=== PATIENT | female | born 1950 | race Caucasian/White ===

== ENCOUNTER → 2023-11-16 09:05 | Outpatient (REF) | payer MEDICARE, OTHER, SELFPAY ==
[2023-11-16 12:26] LABS: ALT (SGPT) 16 U/L (0-35); AST (SGOT) 28 U/L (14-36); Albumin 4.5 g/dl (3.5-5.0); Alkaline Phosphatase 79 U/L (38-126); Blood Urea Nitrogen 25 mg/dl (7-17); Calcium 9.6 mg/dl (8.4-10.2); Carbon Dioxide 24 mmol/L (22-30); Chloride 102 mmol/L (98-107); Glucose 94 mg/dl (70-99); HDL Cholesterol 60 mg/dl; LDL Cholesterol, Calculated 72 mg/dl; Potassium 4.9 mmol/L (3.5-5.1); Sodium 137 mmol/L (135-145); Total Bilirubin 0.5 mg/dl (0.2-1.3); Total Cholesterol 162 mg/dl (50-199); Total Protein 6.9 g/dl (6.3-8.2); Triglyceride 154 mg/dl (10-149); Very Low Density Lipoprotein 30 mg/dl (0-30); eGFR 53.06
== END ==
LOC: HWLAB 09:05
PROVIDERS: ATTENDING PHYSICIAN Nurse Practitioner Adult Health
DX: E78.5 Hyperlipidemia, unspecified (principal)
CPT/HCPCS: 36415; 80053; 80061

== ENCOUNTER 2024-11-21 11:56 | Emergency (ER) | payer MEDICARE, OTHER, SELFPAY ==
[2024-11-21 12:00] VITALS: BP 101/50
[2024-11-21 12:09] VITALS: BMI 27.1
[2024-11-21 12:10] VITALS: BP 106/56
[2024-11-21 12:11] VITALS: BP 106/56
[2024-11-21 12:57] LABS: Hematocrit 37.6 % (37.0-47.0); Hemoglobin 12.3 g/dL (12.0-16.0); Mean Corp Hgb Conc. 32.7 g/dL (33.0-37.0); Mean Corpuscular Volume 90.2 fL (81.0-99.0); Nucleated Red Blood Cells % 0 %; Platelet Count 197 10^3/uL (130-400); Red Cell Dist. Width 12.9 % (11.5-14.5)
[2024-11-21 13:00] VITALS: BP 126/79
[2024-11-21 13:17] LABS: ALT (SGPT) 13 U/L (0-35); AST (SGOT) 22 U/L (14-36); Albumin 4.4 g/dl (3.5-5.0); Alkaline Phosphatase 93 U/L (38-126); Blood Urea Nitrogen 21 mg/dl (7-17); Calcium 9.1 mg/dl (8.4-10.2); Carbon Dioxide 25 mmol/L (22-30); Chloride 105 mmol/L (98-107); Estimated Creatinine Clearance 39 ml/min; Glucose 121 mg/dl (70-99); Potassium 4.6 mmol/L (3.5-5.1); Sodium 136 mmol/L (135-145); Total Protein 6.7 g/dl (6.3-8.2); eGFR 47.50
[2024-11-21 13:18] LABS: Urine Character Clear (Clear)
[2024-11-21 13:28] LABS: Troponin I < 0.012 ng/ml; Urine Squamous Cell 26-30 /LPF (Few); Urine Urothelial Cell 0-2 /LPF (FEW)
[2024-11-21 13:30] LABS: Urine White Cell 16-20 /HPF (0-5)
--- NOTE | 2024-11-21 13:58 | ED.GENMED ---
History of Present Illness
General
Chief Complaint: Fainting Sensation
Time Seen by Provider: 11/21/24 12:25
History of Present Illness
History of Present Illness:
74-year-old female presents the emergency department for evaluation of a syncopal event. 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
States this happened to her 2 years ago there was exact same activity. She denies any associated chest pain or palpitations. Currently feels well with no complaints. She does have hypertension and took her lisinopril this morning.
Past History
Past History
ED Past Medical History: HTN
ED Past Surgical History: Negative Cardiac
Social History
Tobacco: Non-smoker
Alcohol: None
Drug: None
Living: with family
Employment: Retired
Family History
Family History: Other (Noncontributory)
Review of Systems
Review of Systems
Allergies reviewed?: Yes
All Other Systems: ROS reviewed and negative except as documented in HPI and ROS
Phy Exam
Physical Exam
Physical Exam:
GEN: Well appearing, NAD, WDWN
HEENT: Oral mucosa moist, no scleral icterus
Cardiac: Regular rate and rhythm, no murmurs
Lung: No respiratory distress, no tachypnea, lungs clear to auscultation bilaterally
MSK: No gross deformity or injuries
Skin: Good color, no pallor or jaundice, no rashes
Neuro: AO x3, moves all extremities freely
Psych: Calm, cooperative
Course
Orders/Labs/Results
Orders:
Orders
11/21/24 12:07
Electrocardiogram (*1) Urgent
Reason for Study: Syncope
EKG- Treatment ONCE
11/21/24 12:43
CMP [Comprehensive Metabolic Panel] Urgent
Complete Blood Count/With Diff Urgent
Troponin I Urgent
Urinalysis Reflex To Culture Urgent
Date Specimen was Collected: 11/21/24
Time Specimen was Collected: 12:08
Urine Microscopic Reflex Cult Urgent
Urine Culture Urgent
JASON Source: U
Specimen Description:
Date Specimen was Collected: 11/21/24
Time Specimen was Collected: 12:08
Abnormal Lab Results
11/21/24
12:43
RBC 4.17 L 10^6/uL
(4.20-5.40)
MCHC 32.7 L g/dL
(33.0-37.0)
MPV 10.8 H fL
(7.4-10.4)
Absolute Lymphs (auto) 1.0 L 10^3/uL
(1.2-3.4)
Neutrophils % 78.6 H %
(42.2-75.2)
Lymphocytes % 11.8 L %
(20.5-51.1)
BUN 21 H mg/dl
(7-17)
Creatinine 1.2 H mg/dL
(0.6-1.0)
Glucose 121 H mg/dl
(70-99)
Urine Ketones 1+ A
(Negative)
Ur Occult Blood Reflex 1+ A
(Negative)
Leukocyte Esterase Rfl 2+ A
(Negative)
Urine RBC 7-10 A /HPF
(0-2)
Urine WBC (Reflex) 16-20 A /HPF
(0-5)
Urine Bacteria (Reflex) Moderate A
(Negative)
Urine Albumin (Reflex) 3+ A
(Neg - Trace)
11/21/24 12:43
11/21/24 12:43
Vital Signs
Initial and Last Documented VS:
Initial Vital Signs
BP
101/50
11/21/24 12:00
Last Documented Vital Signs
Temp Pulse Resp BP Pulse Ox
97.4 F 60 16 106/56 98
11/21/24 12:10 11/21/24 12:30 11/21/24 12:30 11/21/24 12:11 11/21/24 13:59
MDM/Problems Addressed
MDM/Problems Addressed:
Likely a vasovagal event mediated by excessive heat in the food bank. Patient's EKG is normal, remained in normal sinus/sinus bradycardia on telemetry monitoring. Labs are reassuring, urinalysis does show pyuria however she has no UTI symptoms
thus will follow culture
Comment
Comment:
EKG independently interpreted by me shows a sinus bradycardia at a rate of [address] changes
*Pulse Oximetry
SaO2: 98
Oxygen Mode of Delivery: Room air
Patient hypoxic: no
*Critical Care Note
Total Time (30-74mins, 75-104mins- exclusive of procedures): Not Applicable
ED Attending Note
-
Portions of this chart may have been created with voice recognition software.� Occasional wrong word or��sound alike� substitutions may have occurred due to the inherent limitations of voice recognition software.
Discharge Plan
Departure
Patient Disposition: Home (Routine Discharge)
Date of Disposition: 11/21/24
Time of Disposition: 13:58
Patient with high blood pressure during this ER visit?: No
Discharge Problem:
Syncope, vasovagal
Instructions: Syncope (Fainting) (DC)
Prescriptions:
No Action
lisinopril 20 mg Tablet
20 mg PO DAILY
Theragen Tablet
1 tab PO DAILY
acetaminophen [Tylenol Extra Strength] 500 mg Tablet
500 mg PO Q6H PRN (Reason: mild pain)
calcium carbonate [Calcium 500] 500 mg calcium (1,250 mg) Tablet
500 mg PO DAILY
loratadine [Claritin] 10 mg Tablet
10 mg PO DAILY
rosuvastatin 10 mg Tablet
10 mg PO DAILY
cholecalciferol (vitamin D3) 25 mcg (1,000 unit) Tablet
25 mcg PO DAILY
Referrals:
Nhi Monreal CRNP [Family Provider, General]
Activity Restrictions/Additional Instructions:
You have a large quantity of bacteria in your urine, however no symptoms of a UTI. We will send your urine for a culture, if this shows abnormal bacteria, we will call and start you on an antibiotic
Interventions
Interventions:
*Risk Screen - Suicide Last Done: 11/21/24 12:00
*General Assessment Last Done: 11/21/24 12:00
*Neglect/Abuse Screening Last Done: 11/21/24 12:00
*ED- Fall Risk Assessment Last Done: 11/21/24 12:00
*ED COVID-19 Vaccine History Last Done: 11/21/24 12:00
ED- Cardiac Assessment Last Done: 11/21/24 12:35
ED- Neurological Assessment Last Done: 11/21/24 12:09
Discharge Date and Time
Print Language: SINHALA
[2024-11-21 14:00] VITALS: BP 137/52
== END 2024-11-21 14:25 | disposition home or self-care (01) ==
LOC: EMR 11:56
PROVIDERS: EMERGENCY PHYSICIAN Emergency Medicine; FAMILY PHYSICIAN Nurse Practitioner Adult Health
DX: R55 Syncope and collapse (principal); I10 Essential (primary) hypertension
CPT/HCPCS: 99283; 80053; 81003; 81015; 84484; 85025; 87086; 93005

== ENCOUNTER → 2024-11-29 07:25 | Outpatient (REF) | payer MEDICARE, OTHER, SELFPAY ==
[2024-11-29 10:01] LABS: Urine Character Clear (Clear)
[2024-11-29 10:13] LABS: Blood Urea Nitrogen 20 mg/dl (7-17); Calcium 9.4 mg/dl (8.4-10.2); Carbon Dioxide 26 mmol/L (22-30); Chloride 106 mmol/L (98-107); Glucose 94 mg/dl (70-99); Potassium 4.1 mmol/L (3.5-5.1); Sodium 139 mmol/L (135-145); eGFR 59.12
== END ==
LOC: HWLAB 07:25
PROVIDERS: ATTENDING PHYSICIAN Nurse Practitioner Adult Health
DX: R55 Syncope and collapse (principal); R31.29 Other microscopic hematuria; R79.89 Other specified abnormal findings of blood chemistry
CPT/HCPCS: 36415; 80048; 81003; 81015; 87086